=== PATIENT | male | born 1960 | race African-American/Black ===

== ENCOUNTER 2020-06-09 23:33 | Emergency (ER) | payer MEDICARE ==
[~2020-06-09] VITALS: Ht 170.2 cm; Wt 70.3 kg
[2020-06-10 04:15] VITALS: BP 108/74
== END 2020-06-10 04:00 | disposition home or self-care (01) ==
LOC: ER 06-10 00:14
DX: Z43.0 Encounter for attention to tracheostomy (principal)
CPT/HCPCS: 71045; 99283; 99284